=== PATIENT | female | born 1935 | race Two or more races ===

== ENCOUNTER 2021-11-14 10:33 | Emergency (ER) | payer OTHER ==
[~2021-11-14] VITALS: Ht 152.4 cm; Wt 61.2 kg
[2021-11-14 10:48] VITALS: BP 138/98
[2021-11-14] MEDS ORDERED: BENZ100C19 PO (12:53)
[2021-11-14] MEDS ORDERED: AZITTAB PO (12:53)
[2021-11-14] MEDS ORDERED: LEVO500T31 PO (12:53)
[2021-11-14] MEDS ORDERED: cefTRIAXone SOD 1,000 MG VL IM ONE (13:00)
== END 2021-11-14 13:35 | disposition home or self-care (01) ==
LOC: ER 10:33
DX: J18.9 Pneumonia, unspecified organism (principal); F41.9 Anxiety disorder, unspecified; E11.9 Type 2 diabetes mellitus without complications; I10 Essential (primary) hypertension; Z20.822 Contact with and (suspected) exposure to COVID-19
CPT/HCPCS: 36415; 71046; 82962; 87426; 96372; 99284; J0696

== ENCOUNTER 2025-04-10 14:42 | Inpatient (IN) | payer MEDICAID, OTHER ==
[~2025-04-10] VITALS: Ht 149.9 cm; Wt 55.2 kg
[~2025-04-10 14:42] MED LIST: AZITTAB PO; BENZ100C19 PO; LEVO500T31 PO
--- NOTE | 2025-04-10 15:01 | ED.PDOC ---
HPI Comments This is a 89 year old female brought in by daughter presenting to the ED with chief complaint of chest pain. Daughter reports that the patient has been complaining of chest pain with associated mouth pain and abdominal pain since this morning, being un-consolable since onset. Daughter relays that the patient has had multiple episodes of similar pain the past, being seen at a hospital in [place] 2 weeks ago, but is unsure of their results. Daughter states patient has a tankerman appointment tomorrow regarding the pain she has been experiencing. Daughter denies any syncope, fever, chills, SOB, N/V, dizziness, or any further symptoms. Time Seen by MD: 14:58 Primary Care Provider: VERONIQUE Sebastian Notes: Nurses Notes, Medications, Allergies Allergies: Coded Allergies: NO KNOWN ALLERGIES (Unverified , 11/14/21) Home Meds Active Scripts Benzonatate (Tessalon Perles) 100 Mg Cap, 100 MG PO TID, #30 CAP Prov:LV MIRANDA 11/14/21 Azithromycin (Zithromax Z-Alan) 250 Mg Tab, 250 MG PO DAILY for 6 Days, #6 TAB Prov:LV MIRANDA 11/14/21 Levofloxacin (Levaquin) 500 Mg Tab, 500 MG PO DAILY for 10 Days, #10 TAB Prov:LV MIRANDA 11/14/21 Information Source: Patient Mode of Arrival: Wheelchair Severity: Moderate Timing: Days Duration: Intermittent Prehospital treatment: None Location: Substernal Radiation: Abdomen, Jaw Quality: Sharp Onset: At Rest Cardiac Risk Factors: HTN, Diabetes PE Risk Factors: None History of: Similar pain in past Past Medical History PAST MEDICAL HISTORY: Anxiety, DM, HTN Surgical History: Hysterectomy, Pacemaker Surgical History (Other): Cataract surgery [employer] History: Denies all [employer] Hx Family History Family History: Reviewed,noncontributory to illness, Family hx of DM, Family hx of HTN Social History Smoker: Non-Smoker Alcohol: Denies ETOH Use Drugs: Denies Drug Use Lives In: Home Constitutional: denies: chills, diaphoresis, fatigue, fever, malaise, sweats, weakness, others EENTM: reports: mouth pain; denies: blurred vision, double vision, ear bleeding, ear discharge, ear drainage, ear pain, ear ringing, eye pain, eye redness, hearing loss, mouth swelling, nasal discharge, nose bleeding, nose congestion, nose pain, photophobia, tearing, throat pain, throat swelling, voice changes, others Respiratory: denies: cough, hemoptysis, orthopnea, SOB at rest, shortness of breath, SOB with excertion, stridor, wheezing, others Cardiovascular: reports: chest pain; denies: dizzy spells, diaphoresis, Dyspnea on exertion, edema, irregular heart beat, left arm pain, lightheadedness, palpitations, PND, syncope, others Gastrointestinal: reports: abdominal pain; denies: abdomen distended, blood streaked bowels, constipated, diarrhea, dysphagia, difficulty swallowing, hematemesis, melena, nausea, poor appetite, poor fluid intake, rectal bleeding, rectal pain, vomiting, others Genitourinary: denies: abnormal vagina bleeding, burning, dyspareunia, dysuria, flank pain, frequency, hematuria, incontinence, pain, , vagina discharge, urgency, others Neurological: denies: dizziness, fainting, headache, left sided numbness, left sided weakness, numbness, paresthesia, pre-existing deficit, right sided nu mbness, right sided weakness, seizure, speech problems, tingling, tremors, weakness, others Musculoskeletal: denies: back pain, gout, joint pain, joint swelling, muscle pain, muscle stiffness, neck pain, others Integumetry: denies: bruises, change in color, change in hair/nails, dryness, laceration, lesions, lumps, rash, wounds, others Allergic/Immunocompromised: denies: Difficulty Healing, Frequent Infections, Hives, Itching, others Hematologic/Lymphatic: denies: anemia, blood clots, easy bleeding, easy bruising, swollen glands, others Endocrine: denies: excessive hunger, excessive sweating, excessive thirst, excessive urination, flushing, intolerance to cold, intolerance to heat, unexplained weight gain, unexplained weight loss, others Psychiatric: denies: anxiety, bipolar disorder, depression, hopeless, panic disorder, schizophrenia, sleepless, suicidal, others All Other Systems: Reviewed and Negative Physical Exam General Appearance: Moderate Distress HEENT: Normal ENT Inspection, Pharynx Normal, TMs Normal Neck: Full Range of Motion, Non-Tender, Normal, Normal Inspection Respiratory: Chest Non-Tender, Lungs Clear, No Accessory Muscle Use, No Respiratory Distress, Normal Breath Sounds Cardiovascular: No Edema, No JVD, No Murmur, No Gallop, Normal Peripheral Pulses, Regular Rate/Rhythm Breast Exam: Deferred Gastrointestinal: No Organomegaly, Non Tender, No Pulsatile Mass, Normal Bowel Sounds, Soft Genitalia: Deferred Pelvic: Deferred Rectal: Deferred Extremities: No calf tenderness, Normal capillary refill, No pedal edema Musculoskeletal : Apperance: Normal Neurologic: Alert, covered buckle assembler II-XII nml as Tested, Motor Weakness, Normal Affect, Normal Mood, No Sensory Deficits Cerebellar Function: Normal Reflexes: Normal Skin: Dry, Normal Color, Warm Lymphatic: No Adenopathy EKG EKG : Pulse Rate (adult): 72 Riparius: Normal Cardiac Rhythm: Paced Block: None Hypertrophy: None ST: Normal Was a procedure done? Was a procedure done?: No CP Differential Dx Differential Diagnosis: Angina, VT, Pulmonary Embolus Differential Diagnosis: CHF Differential Diagnosis: Pericarditis X-Ray, Labs, Meds, VS Vital Signs Date Time Temp Pulse Resp B/P (MAP) Pulse Ox O2 Delivery O2 Flow Rate FiO2 04/10/25 18:29 74 24 132/88 04/10/25 18:27 74 24 132/88 (103) 96 04/10/25 15:12 72 04/10/25 14:53 72 04/10/25 14:45 98.4 71 20 144/101 (115) 98 98.4 161/60 (93) Lab Test 04/10/25 19:06 04/10/25 17:05 04/10/25 16:15 Range/Units Troponin I High Sensitivity Pending 49 *H 52 *H </=34 ng/L White Blood Count 10.0 4.4-10.8 10^3/uL Red Blood Count 3.32 L 4.0-5.20 10^6/uL Hemoglobin 11.1 L 12.2-16.2 g/dL Hematocrit 31.8 L 36.0-46.0 % Mean Corpuscular Volume 95.7 80.0-100.0 fL Mean Corpuscular Hemoglobin 33.3 H 28.0-32.0 pg Mean Corpuscular Hemoglobin Concent 34.8 32.0-36.0 g/dL Red Cell Distribution Width 13.8 11.8-14.3 % Platelet Count 386 140-450 10^3/uL Mean Platelet Volume 6.9 6.9-10.8 fL Neutrophils (%) (Auto) 82.5 H 37.0-80.0 % Lymphocytes (%) (Auto) 11.3 10.0-50.0 % Monocytes (%) (Auto) 5.8 0.0-12.0 % Eosinophils (%) (Auto) 0.0 0.0-7.0 % Basophils (%) (Auto) 0.4 0.0-2.0 % Neutrophils # (Auto) 8.2 1.6-8.6 10 ^3/uL Lymphocytes # (Auto) 1.1 0.4-5.4 10 ^3/uL Monocytes # (Auto) 0.6 0-1.3 10 ^3/uL Eosinophils # (Auto) 0 0-0.8 10 ^3/uL Basophils # (Auto) 0 0-0.2 10 ^3/uL Nucleated Red Blood Cells 0.0 % Sodium Level 122 L 136-145 mmol/L Potassium Level 5.0 3.5-5.1 mmol/L Chloride Level 90 L 98-107 mmol/L Carbon Dioxide Level 21 20-31 mmol/L Anion Gap 11 5-15 Blood Urea Nitrogen 14 9-23 mg/dL Creatinine 0.81 0.550-1.02 mg/dL Glomerular Filtration Rate Calc 70 >90 mL/min BUN/Creatinine Ratio 17.3 10.0-20.0 Serum Glucose 183 H 74-106 mg/dL Calcium Level 10.1 8.7-10.4 mg/dL Current Medications Medications (Trade) Dose Ordered Sig/Britany Route Start Time Stop Time Status Last Admin Ondansetron HCl (Zofran) 4 mg ONCE ONCE IV 04/10/25 15:00 04/10/25 15:01 DC 04/10/25 18:29 Morphine Sulfate 2 mg ONCE ONCE IV 04/10/25 15:00 04/10/25 15:01 DC 04/10/25 18:29 IV Hep-Lock was established The patient was given Zofran 4 mg IV push The patient was given morphine 2 mg IV push The patient's CBC is within normal limits The chemistry panel is within normal limits The troponin level came back at 52 and the 2nd one came back at 49 we are drove bolus somewhat elevated The patient is being admitted to the hospitalist A chest x-ray shows: No sign of any cardiomegaly The patient is being admitted to the hospitalist Images Reviewed?: Images reviewed and evaluated by me Time of 1ST Reevaluation: 19:42 Reevaluation 1ST: Unchanged Patient Education/Counseling: Diagnosis, Treatment, Prognosis Family Education/Counseling: Diagnosis, Treatment, Prognosis Additional Information Reviewed patient's previous visit(s): 11/14/21 for pneumonia The following tests were ordered, and results were reviewed by me: Chest XR, CBC, BMP, UA, EKG Additional information was gathered from interviewing the following independent historian: Daughter I reviewed and agreed with the following test results read by other provider: Chest XR I discussed treatments and results with medical personnel and: PATIENT and daughter Comprehensive systems review obtained and negative except for what is stated in the HPI. SEPSIS Sepsis Screen Physician Orders Chest Portable (04/10/25 14:51) Urinalysis (04/10/25 14:51) Heplock Iv (04/10/25 14:51) Biscuit Factory Worker (04/10/25 14:51) Blood Pressure (04/10/25 14:51) Pulse Oximetry (04/10/25 14:51) Electrocardigram (04/10/25 14:51) Troponin-I Hs (04/10/25 17:51) Electrocardigram (04/10/25 15:51) Electrocardigram (04/10/25 17:51) Vital Signs Date Time Temp Pulse Resp B/P (MAP) Pulse Ox O2 Delivery O2 Flow Rate FiO2 04/10/25 18:29 74 24 132/88 04/10/25 18:27 74 24 132/88 (103) 96 04/10/25 15:12 72 04/10/25 14:53 72 04/10/25 14:45 98.4 71 20 144/101 (115) 98 98.4 161/60 (93) Laboratory Tests Test 04/10/25 16:15 White Blood Count 10.0 10^3/uL (4.4-10.8) Medications Medications Dose Ordered Sig/Britany Route Start Time Stop Time Status Last Admin Dose Admin Morphine Sulfate 2 mg ONCE ONCE IV 04/10/25 15:00 04/10/25 15:01 DC 04/10/25 18:29 Ondansetron HCl 4 mg ONCE ONCE IV 04/10/25 15:00 04/10/25 15:01 DC 04/10/25 18:29 Departure 1 Departure Time of Disposition: 19:44 Impression: Primary Impression: Acute chest pain Additional Impression: Acute coronary syndrome Disposition: 09 ADMITTED INPATIENT Admit to: Tele Condition: Fair Critical Care Note Critical Care Time?: Yes (35 min-critical care time only) Stability Stability form required: Yes Unstable for transfer: Telemetry monitoring (Telemetry monitoring required), ED Physician Assesment (Clinical assesment) Heart Score Heart Score: Heart Score Response (Comments) Value History Highly Suspicious 2 EKG Normal 0 Age >65 2 Risk Factors >3 or Hx ASHD 2 Troponin 1-2 x's Normal limit 1 Total 7 I personally scribed for ABRAM AGUIAR MD ([email or web address]) on 04/10/25 at 15:01. Electronically submitted by eSth Jacobson ([email or web address]). I personally scribed for ABRAM AGUIAR MD ([email or web address]) on 04/10/25 at 15:12. Electronically submitted by Seth Jacobson ([email or web address]). ABRAM AGUIAR MD Apr 10, 2025 15:01
--- NOTE | 2025-04-10 15:33 | DVH ---
EXAM: XY CHEST PORTABLE Indication: pain Technique: Single frontal view of the chest was obtained Comparison: None FINDINGS: Lines and Tubes: Cardiac pacemaker projects over left chest wall. Lungs: No focal consolidation. Pleura: No effusion. No pneumothorax. Cardiomediastinal contours: Unremarkable Bones: No acute osseous abnormality. IMPRESSION: No acute cardiopulmonary disease.
[2025-04-10 16:27] LABS: Basophils # (auto) 0 10 ^3/uL (0-0.2); Basophils % (auto) 0.4 % (0.0-2.0); Eosinophils # (auto) 0 10 ^3/uL (0-0.8); Hematocrit 31.8 % (36.0-46.0); Hemoglobin 11.1 g/dL (12.2-16.2); Lymphocytes # (auto) 1.1 10 ^3/uL (0.4-5.4); Lymphocytes % (auto) 11.3 % (10.0-50.0); Mean Corpuscular Hemoglobin 33.3 pg (28.0-32.0); Mean Corpuscular Hgb Conc. 34.8 g/dL (32.0-36.0); Mean Corpuscular Volume 95.7 fL (80.0-100.0); Monocytes # (auto) 0.6 10 ^3/uL (0-1.3); Monocytes % (auto) 5.8 % (0.0-12.0); Neutrophils # (auto) 8.2 10 ^3/uL (1.6-8.6); Neutrophils % (auto) 82.5 % (37.0-80.0); Platelet Count (auto) 386 10^3/uL (140-450); Red Blood Cells 3.32 10^6/uL (4.0-5.20); Red Cell Distribution Width 13.8 % (11.8-14.3)
[2025-04-10 16:37] LABS: Anion Gap 11 (5-15); Calcium 10.1 mg/dL (8.7-10.4); Carbon Dioxide 21 mmol/L (20-31)
[2025-04-10 16:42] LABS: BUN/Creatinine Ratio 17.3 (10.0-20.0); Blood Urea Nitrogen 14 mg/dL (9-23)
[2025-04-10 16:44] LABS: Chloride 90 mmol/L (98-107); Glucose 183 mg/dL (74-106); Sodium 122 mmol/L (136-145)
[2025-04-10] MEDS: ONDANSETRON HCL 4 MG/2 ML VIAL IV ONE (18:29)
[2025-04-10] MEDS: MORPHINE SULFATE INJ 2 MG/ml SYRG IV ONE (18:29)
[2025-04-10] MEDS ORDERED: NITROGLYCERIN 0.4 MG SL TAB SL PRN (20:00)
[2025-04-10] MEDS ORDERED: MORPHINE SULFATE INJ 2 MG/ml SYRG IV PRN (20:00)
[2025-04-10] MEDS ORDERED: DEXTROSE (50%) 50ML SYRG IV PRN (20:00)
[2025-04-10] MEDS ORDERED: ONDANSETRON HCL 4 MG/2 ML VIAL IV PRN (20:00)
[2025-04-10 20:47] LABS: Urine Bacteria None Seen /hpf (None Seen)
[2025-04-10 20:58] LABS: Urine Blood TRACE /uL (Negative); Urine Clarity Clear (Clear); Urine Color Colorless (Yellow); Urine Protein, UAD Negative (Negative); Urine Specific Gravity 1.003 (1.001-1.035); Urine Squamous Epithelial Cell FEW /hpf (<5); Urine Urobilinogen Normal (Negative); Urine WBC < 1 /HPF (0-5); Urine pH 5.5 (5.0-9.0)
--- NOTE | 2025-04-10 22:08 | DVHHP2 ---
History of Present Illness Reason for Visit: Palpitations History of Present Illness 89-year-old female presents for evaluation of palpitations. Patient reports a three day history of intermittent palpitations. She states that today she developed mild left-sided chest pain. She states having he pacemaker which she was told had to be replaced on September of last year she has not been able to follow up with her hog ringer. Denies shortness or breath or dizziness. No other acute complaints reported. Past Medical History Diabetes mellitus Past Surgical History Pacemaker and cataract surgery Family History Noncontributory Smoke: No ALCOHOL: none Drugs: None Lives: with Family Review of Systems Review of Systems Review of systems are currently negative otherwise addressed in HPI. Allergies: Coded Allergies: NO KNOWN ALLERGIES (Unverified , 11/14/21) Medications Current Medications Medications Dose Ordered Sig/Britany Route Start Time Stop Time Status Last Admin Dose Admin Aspirin 162 mg DAILY PO 04/11/25 10:00 Atorvastatin Calcium 10 mg HS PO 04/10/25 22:00 Diagnostic Test (Pha) 1 strip ACHS 04/10/25 22:00 Insulin Human Regular ACHS SC 04/10/25 22:00 Dextrose 50 ml UD PRN IV 04/10/25 20:00 Ondansetron HCl 4 mg Q4HP PRN IV 04/10/25 20:00 Enoxaparin Sodium 40 mg DAILY SC 04/11/25 10:00 Acetaminophen 650 mg Q6HP PRN PO 04/10/25 20:00 Nitroglycerin 0.4 mg Q5MINP PRN SL 04/10/25 20:00 Morphine Sulfate 2 mg Q30M PRN IV 04/10/25 20:00 Exam Vital Signs Vital Signs Date Time Temp Pulse Resp B/P (MAP) Pulse Ox O2 Delivery O2 Flow Rate FiO2 04/10/25 21:43 98.5 70 16 155/60 (91) 97 98.5 Exam Gen: 89-year-old female in no apparent distress. Skin: Warm, dry, normal color and texture, no rash. HEENT: Normocephalic atraumatic, mucous membranes moist and pink. Neck: Cervical and supraclavicular nodes normal without enlargement, trachea is midline, thyroid gland is normal without masses. Pulmonary: Clear to auscultation and percussion bilaterally. Cardiac: Regular rate and rhythm. No murmur Abdomen: Soft, nontender, nondistended, bowel sounds present all 4 quadrants, no guarding, no rigidity, no organomegaly. Extremities: No cyanosis, clubbing, no edema Neuro: Cranial nerves II through XII grossly intact, normal affect and speech, no focal motor deficits. Labs/Xrays ORDERING PHYSICIAN: ABRAM AGUIAR MD PROCEDURE(s): CXRP - CHEST PORTABLE REASON: pain ORDER NUMBER(s): [id number], ACCESSION NUMBER(s): [id number] EXAM: XY CHEST PORTABLE Indication: pain Technique: Single frontal view of the chest was obtained Comparison: None FINDINGS: Lines and Tubes: Cardiac pacemaker projects over left chest wall. Lungs: No focal consolidation. Pleura: No effusion. No pneumothorax. Cardiomediastinal contours: Unremarkable Bones: No acute osseous abnormality. IMPRESSION: No acute cardiopulmonary disease. Labs Test 04/10/25 20:46 04/10/25 19:06 04/10/25 16:15 Range/Units Urine Color Colorless Yellow Urine Clarity Clear Clear Urine pH 5.5 5.0-9.0 Urine Specific [place] 1.003 1.001-1.035 Urine Protein Negative Negative Urine Ketones Negative Negative Urine Blood Trace H Negative /uL Urine Nitrite Negative Negative Urine Bilirubin Negative Negative Urine Urobilinogen Normal Negative mg/dL Urine Leukocyte Esterase Negative Negative /uL Urine RBC None seen 0 - 4 /hpf Urine Microscopic WBC < 1 0-5 /HPF Urine Squamous Epithelial Cells Few <5 /hpf Urine Bacteria None seen None Seen /hpf Urine Glucose Normal Normal mg/dL Troponin I High Sensitivity 54 *H </=34 ng/L White Blood Count 10.0 4.4-10.8 10^3/uL Red Blood Count 3.32 L 4.0-5.20 10^6/uL Hemoglobin 11.1 L 12.2-16.2 g/dL Hematocrit 31.8 L 36.0-46.0 % Mean Corpuscular Volume 95.7 80.0-100.0 fL Mean Corpuscular Hemoglobin 33.3 H 28.0-32.0 pg Mean Corpuscular Hemoglobin Concent 34.8 32.0-36.0 g/dL Red Cell Distribution Width 13.8 11.8-14.3 % Platelet Count 386 140-450 10^3/uL Mean Platelet Volume 6.9 6.9-10.8 fL Neutrophils (%) (Auto) 82.5 H 37.0-80.0 % Lymphocytes (%) (Auto) 11.3 10.0-50.0 % Monocytes (%) (Auto) 5.8 0.0-12.0 % Eosinophils (%) (Auto) 0.0 0.0-7.0 % Basophils (%) (Auto) 0.4 0.0-2.0 % Neutrophils # (Auto) 8.2 1.6-8.6 10 ^3/uL Lymphocytes # (Auto) 1.1 0.4-5.4 10 ^3/uL Monocytes # (Auto) 0.6 0-1.3 10 ^3/uL Eosinophils # (Auto) 0 0-0.8 10 ^3/uL Basophils # (Auto) 0 0-0.2 10 ^3/uL Nucleated Red Blood Cells 0.0 % Sodium Level 122 L 136-145 mmol/L Potassium Level 5.0 3.5-5.1 mmol/L Chloride Level 90 L 98-107 mmol/L Carbon Dioxide Level 21 20-31 mmol/L Anion Gap 11 5-15 Blood Urea Nitrogen 14 9-23 mg/dL Creatinine 0.81 0.550-1.02 mg/dL Glomerular Filtration Rate Calc 70 >90 mL/min BUN/Creatinine Ratio 17.3 10.0-20.0 Serum Glucose 183 H 74-106 mg/dL Calcium Level 10.1 8.7-10.4 mg/dL Assessment/Plan Assessment/Plan Assessment Chest pain Palpitations Diabetes mellitus Status post pacemaker Plan Admit the patient to telemetry to the hospitalist Cardiology consultation Continue treatment per orders. Plan discussed with: Patient My Orders Orders - DELFINA HIGH Procedure Category Date Status Time * Cardiology Consult CONS 04/10/25 Transmitted 19:48 Aspirin Tablet PHA 04/11/25 In Process 10:00 Atorvastatin (Lipitor) PHA 04/10/25 In Process 22:00 Basic Metabolic Panel LAB 04/11/25 Verified 04:00 Glucose Blood PHA 04/10/25 In Process (Accu-Chek Comfort 22:00 Insulin R (Human) PHA 04/10/25 In Process (Insulin R) 22:00 Dextrose 50% Syringe PHA 04/10/25 In Process 20:00 Enoxaparin Sodium PHA 04/11/25 In Process (Lovenox) 10:00 Cardiac DIET 04/11/25 Transmitted Diet-2gna,Lofat,Lochol Breakfast Echo 2d Mode Cardiac US 04/10/25 Logged DOP 19:48 Condition: Fair [place] 04/10/25 In Process 19:48 Acetaminophen Tablet PHA 04/10/25 In Process (Tylenol Tablet) 20:00 Bedrest With Bathroom [place] 04/10/25 In Process Privileg 19:48 Nitroglycerin PHA 04/10/25 In Process Sublingual (Ntrostat 20:00 Morphine Sulfate PHA 04/10/25 In Process Injection 20:00 Stat Ekg For Chest [facility] 04/10/25 In Process Pain 19:48 Notify Md Of Changes [facility] 04/10/25 In Process From Base 19:48 Weir Fisher For [facility] 04/10/25 In Process 24 Hours 19:48 Emergency Dysrhythmia [facility] 04/10/25 In Process Protocol 19:48 Rhythm Strips Once [facility] 04/10/25 In Process Every Shift 19:48 Oxygen By Nasal RT 04/10/25 Transmitted Cannula 19:48 Admit ADMIT 04/10/25 Verified 19:48 Ondansetron Hcl PHA 04/10/25 In Process (Zofran) 20:00 Date of Service: Apr 10, 2025 Billing Provider: DELFINA HIGH Common Visit Codes: [id number] INP/OBS CARE (HIGH) DELFINA HIGH Apr 10, 2025 22:08
[2025-04-10 22:44] LABS: LDL Cholesterol 50 mg/dL (< 100); Triglycerides 78 mg/dL (< 150)
[2025-04-10 22:46] LABS: Cholesterol 137 mg/dL (< 200)
[2025-04-10 22:54] LABS: HDL Cholesterol 69 mg/dL (40-59)
[2025-04-10] MEDS: ACCU-CHEK COMFORT CURVE STRIP VI SCH (23:02)
[2025-04-10] MEDS: InsuLIN REG 1unit/0.01ml Soln (100units/ml) SC SCH (23:07)
[2025-04-10] MEDS: ATORVASTATIN 20 MG TAB PO SCH (23:13)
[2025-04-10] MEDS: diphenhdrAMINE HCL 50 MG/1 ML VL IV ONE (23:13)
[2025-04-10 23:26] VITALS: BP 145/70; PULSE 67; RESP 16; TEMP 98.5; O2SAT 100
[2025-04-10 23:32] VITALS: PULSE 70
[2025-04-11] VITALS (9 sets, daily range): BP systolic 101–145; BP diastolic 51–70; PULSE 67–70; RESP 16–18; TEMP 97.7–99.2; O2SAT 95–100
[2025-04-11] MEDS ORDERED: METF-370 PO (00:22)
[2025-04-11 06:48] LABS: Potassium 4.1 mmol/L (3.5-5.1)
[2025-04-11 06:49] LABS: Anion Gap 10 (5-15); Carbon Dioxide 23 mmol/L (20-31)
[2025-04-11 06:51] LABS: Chloride 97 mmol/L (98-107); Sodium 130 mmol/L (136-145)
[2025-04-11 06:54] LABS: BUN/Creatinine Ratio 20.7 (10.0-20.0); Blood Urea Nitrogen 19 mg/dL (9-23); Glucose 111 mg/dL (74-106)
[2025-04-11] MEDS: ASPirin 81 mg TAB PO SCH (09:55)
[2025-04-11] MEDS: ENOXAPARIN SOD 40 MG/0.4 ML SYRINGE SC SCH (09:56)
--- NOTE | 2025-04-11 10:43 | ECG ---
[facility] Test Date: 2025-04-10 Test Time: 14:53:41 Pat Name: ADITI QUINTEROS Department: ER Room: 0249T B Gender: F Coater Helper: RANCHO : 1935 Requested By: ABRAM AGUIAR Order Number: [id number] Reading MD: Randy Bauer Measurements Intervals [place] Rate: 72 P: -22 IN: 184 QRS: -55 QRSD: 165 T: -26 QT: 445 QTc: 488 Interpretive Statements Atrial-sensed ventricular-paced rhythm No further analysis attempted due to paced rhythm Baseline wander in lead(s) V1,V2 Electronically Signed On 04-13-2025 19:59:49 PDT by Randy Bauer Please click the below link to view image of tracing.
--- NOTE | 2025-04-11 10:48 | DVHCONRES ---
Date Seen: Apr 11, 2025 Resident Creating Document: ANDRADE MCGOWAN RESIDENT Reason for Consultation Chest pain History of Present Illness Patient is an 89-year-old female with past medical history of diabetes, dyslipidemia, s/p pacemaker in 2008 who comes in due to palpitations and chest pain. According to the patient and daughter at bedside, she has been experiencing a throbbing pressure-like chest pain for the past 1 year, she rates the pain as 4/10, onset at rest and accompanied with palpitations. Currently denies any active ongoing chest pain. Patient also notes she experiences mouth pain which leads to palpitations and spreads to an abdominal pain. Patient is a poor historian. At baseline patient uses a walker to ambulate. On review of systems patient is complaining of fatigue, palpitations, nausea, 2 episodes of vomiting yesterday and diarrhea. Of note, per patient's daughter at bedside she was told in September 2024 that pacemaker needs battery replacement, daughter notes she has an appointment with [employer] today at 1:00 p.m. for battery replacement. Serial troponins were 52, 49, 54, 41. Past Medical History diabetes, dyslipidemia, s/p pacemaker in 2008 Past Surgical History Hysterectomy, s/p pacemaker placement in 2008 Family History: Diabetes mellitus G8 MOTHER G8 FATHER Social History Smoking: Denies Alcohol: Denies Drugs: Denies Allergies: Coded Allergies: NO KNOWN ALLERGIES (Unverified , 11/14/21) Home Meds Reported Medications Metformin Hydrochloride (Metformin Hcl) 500 Mg Tab, 500 MG PO BID for DIABETES for 30 Days, MG 04/11/25 Current Medications Current Medications Medications (Trade) Dose Ordered Sig/Britany Route PRN Reason Start Time Stop Time Status Last Admin Aspirin 162 mg DAILY PO 04/11/25 10:00 04/11/25 09:55 Atorvastatin Calcium (Lipitor) 10 mg HS PO 04/10/25 22:00 04/10/25 23:13 Diagnostic Test (Pha) (Accu-Chek Comfort Curve T) 1 strip ACHS 04/10/25 22:00 04/11/25 06:35 Insulin Human Regular (InsuLIN R) ACHS SC 04/10/25 22:00 04/10/25 23:07 Dextrose 50 ml UD PRN IV Blood Sugar LESS THAN 60 04/10/25 20:00 Ondansetron HCl (Zofran) 4 mg Q4HP PRN IV NAUSEA / VOMITING 04/10/25 20:00 Enoxaparin Sodium (Lovenox) 40 mg DAILY SC 04/11/25 10:00 04/11/25 09:56 Acetaminophen (Tylenol Tablet) 650 mg Q6HP PRN PO PAIN SCALE 1-3 OR TEMP>100.4 04/10/25 20:00 Nitroglycerin (Ntrostat Sublingual) 0.4 mg Q5MINP PRN SL FOR CHEST PAIN 04/10/25 20:00 Morphine Sulfate 2 mg Q30M PRN IV FOR CHEST PAIN 04/10/25 20:00 Review of Systems Patient seen and examined at bedside. General: Fatigue Eyes: No Pain, No Vision change, No Conjunctivae inflammation, No Eyelid inflammation, No Other, No Redness ENT: No Ear pain, No Ear discharge, No Nose pain, No Nose discharge, No Nose congestion, No Mouth pain, No Mouth swelling, No Throat pain, No Throat swelling, No Other Cardiovascular: No Chest Pain, Palpitations, No Orthopnea, No Paroxysmal No Dyspnea, No Edema, No Lt Headedness, No Other Respiratory: No Cough, No Dry, No Shortness of breath, No SOB with exertion, No Wheezing, No Hemoptysis, No Pleuritic Pain, No Sputum, No Other Gastrointestinal: Nausea, Vomiting, Abdominal Pain, Diarrhea, No Constipation, No Melena, No Hematochezia, No Other Genitourinary: No Dysuria, No Frequency, No Incontinence, No Hematuria, No Retention, No Other Musculoskeletal: No other, No neck pain, No shoulder pain, No arm pain, No back pain, No hand pain, No leg pain, No foot pain Skin: No Rash, No Lesions, No Jaundice, No Bruising, No Other Vital Signs Vital Signs Date Time Temp Pulse Resp B/P (MAP) Pulse Ox O2 Delivery O2 Flow Rate FiO2 04/11/25 09:00 98.0 70 17 133/67 (89) 95 98.0 04/11/25 08:57 Room Air* 0 21 Physical Exam General Appearance: Cooperative. Well developed. Well nourished. NAD. Dry mucous membrane Head Exam: Normal inspection Neck Exam: Normal inspection. Non-tender. Pulmonary/Respiratory: Chest non-tender. Decreased bilateral breath sounds, no crackles, no wheezing. Cardiovascular/Chest: Regular rate and rhythm. No murmurs. No JVD. Peripheral Pulses: 2+ Radial (R). 2+ Radial (L). 2+ Pedal (R). 2+ Pedal (L) Abdominal Exam: Normal bowel sounds. Soft. normal abdomen, no visible veins, Nontender. No hepatospenomegaly. No masses Lower extremities: Negative lower extremity edema Neuro/Mental Status: A&O x2-3. Coherent. Skin Exam: Normal inspection. Normal color. Warm. Dry Labs/Diagnostic Data Labs Test 04/11/25 06:10 04/11/25 06:07 04/10/25 20:46 04/10/25 19:06 Range/Units POC Glucose 130 H 70-106 mg/dl Sodium Level 130 #L 136-145 mmol/L Potassium Level 4.1 3.5-5.1 mmol/L Chloride Level 97 L 98-107 mmol/L Carbon Dioxide Level 23 20-31 mmol/L Anion Gap 10 5-15 Blood Urea Nitrogen 19 9-23 mg/dL Creatinine 0.92 0.550-1.02 mg/dL Glomerular Filtration Rate Calc 60 >90 mL/min BUN/Creatinine Ratio 20.7 H 10.0-20.0 Serum Glucose 111 H 74-106 mg/dL Hemoglobin A1c 6.4 H <5.7 % A1C Calcium Level 10.0 8.7-10.4 mg/dL Troponin I High Sensitivity 41 *H </=34 ng/L Urine Color Colorless Yellow Urine Clarity Clear Clear Urine pH 5.5 5.0-9.0 Urine Specific [place] 1.003 1.001-1.035 Urine Protein Negative Negative Urine Ketones Negative Negative Urine Blood Trace H Negative /uL Urine Nitrite Negative Negative Urine Bilirubin Negative Negative Urine Urobilinogen Normal Negative mg/dL Urine Leukocyte Esterase Negative Negative /uL Urine RBC None seen 0 - 4 /hpf Urine Microscopic WBC < 1 0-5 /HPF Urine Squamous Epithelial Cells Few <5 /hpf Urine Bacteria None seen None Seen /hpf Urine Glucose Normal Normal mg/dL Triglycerides Level 78 < 150 mg/dL Cholesterol Level 137 < 200 mg/dL LDL Cholesterol 50 < 100 mg/dL HDL Cholesterol 69 H 40-59 mg/dL Test 04/10/25 17:05 04/10/25 16:15 Range/Units Thyroid Stimulating Hormone (TSH) 2.36 0.55-4.78 uIU/mL White Blood Count 10.0 4.4-10.8 10^3/uL Red Blood Count 3.32 L 4.0-5.20 10^6/uL Hemoglobin 11.1 L 12.2-16.2 g/dL Hematocrit 31.8 L 36.0-46.0 % Mean Corpuscular Volume 95.7 80.0-100.0 fL Mean Corpuscular Hemoglobin 33.3 H 28.0-32.0 pg Mean Corpuscular Hemoglobin Concent 34.8 32.0-36.0 g/dL Red Cell Distribution Width 13.8 11.8-14.3 % Platelet Count 386 140-450 10^3/uL Mean Platelet Volume 6.9 6.9-10.8 fL Neutrophils (%) (Auto) 82.5 H 37.0-80.0 % Lymphocytes (%) (Auto) 11.3 10.0-50.0 % Monocytes (%) (Auto) 5.8 0.0-12.0 % Eosinophils (%) (Auto) 0.0 0.0-7.0 % Basophils (%) (Auto) 0.4 0.0-2.0 % Neutrophils # (Auto) 8.2 1.6-8.6 10 ^3/uL Lymphocytes # (Auto) 1.1 0.4-5.4 10 ^3/uL Monocytes # (Auto) 0.6 0-1.3 10 ^3/uL Eosinophils # (Auto) 0 0-0.8 10 ^3/uL Basophils # (Auto) 0 0-0.2 10 ^3/uL Nucleated Red Blood Cells 0.0 % Assessment Chest pain, rule out ACS S/p pacemaker, pacer dependent Palpitations Type 2 diabetes, Hb A1c 6.4 Plan: - serial troponins 52, 49, 54, 41 - heart score 4 - pacemaker interrogation with [facility] completed, per personnel pacemaker functioning appropriately with adequate battery for the next 8 months - inpatient stress test Lexiscan - outpatient follow up with cardiology recommended for pacemaker management - rest of the management as per course of hospitalization Thank you so much for the opportunity to consult on your patient. Cardiology team will follow the patient. In case of any questions or concerns please feel free to reach out. Plan discussed with Dr. Vela Plan discussed with: Patient, Daughter, Other (RN) Visit Coding Cardiology RES Date of Service: Apr 11, 2025 Billing Provider: ABAD VELA Sr., MD Cardiology Common Codes: [id number] INP/OBS CARE (High) ANDRADE MCGOWAN RESIDENT Apr 11, 2025 10:48
--- NOTE | 2025-04-11 17:42 | DVHPN2 ---
Subjective Seen and examined at bedside, cardio consult done. Occasional chest pain. Changes from previous H/P or p: No Changes Objective Vitals Vital Signs Date Time Temp Pulse Resp B/P (MAP) Pulse Ox O2 Delivery O2 Flow Rate FiO2 04/11/25 17:00 99.2 70 17 111/58 (75) 97 99.2 04/11/25 08:57 Room Air* 0 21 Intake/Output Intake and Output 04/11/25 06:59 Intake Total 0 ml Balance 0 ml Intake Oral 0 ml # Voids 1 General Appearance: Alert, Oriented X3, Cooperative, No acute distress Lungs: Clear to auscultation Cardiovascular: Regular rate, Normal S1, Normal S2 Abdomen: Normal bowel sounds, Soft Psych/Mental Status: Mental status NL Medications Current Medications Medications Dose Ordered Sig/Britany Route Start Time Stop Time Status Last Admin Dose Admin Aspirin 162 mg DAILY PO 04/11/25 10:00 04/11/25 09:55 162 MG Atorvastatin Calcium 10 mg HS PO 04/10/25 22:00 04/10/25 23:13 10 MG Diagnostic Test (Pha) 1 strip ACHS 04/10/25 22:00 04/11/25 11:30 1 STRIP Insulin Human Regular ACHS SC 04/10/25 22:00 04/10/25 23:07 3 UNITS Dextrose 50 ml UD PRN IV 04/10/25 20:00 Ondansetron HCl 4 mg Q4HP PRN IV 04/10/25 20:00 Enoxaparin Sodium 40 mg DAILY SC 04/11/25 10:00 04/11/25 09:56 40 MG Acetaminophen 650 mg Q6HP PRN PO 04/10/25 20:00 Nitroglycerin 0.4 mg Q5MINP PRN SL 04/10/25 20:00 Morphine Sulfate 2 mg Q30M PRN IV 04/10/25 20:00 Laboratory Results Laboratory Tests 04/10/25 16:15 04/11/25 06:07 Chemistry Test 04/11/25 06:07 Calcium Level 10.0 mg/dL (8.7-10.4) Lipid panel Test 04/10/25 19:06 Cholesterol Level 137 mg/dL (< 200) HDL Cholesterol 69 mg/dL (40-59) H Triglycerides Level 78 mg/dL (< 150) HgA1c, TSH Test 04/11/25 06:07 Hemoglobin A1c 6.4 % A1C (<5.7) H Urinalysis Test 04/10/25 20:46 Urine Color Colorless (Yellow) Urine Clarity Clear (Clear) Urine pH 5.5 (5.0-9.0) Urine Specific [place] 1.003 (1.001-1.035) Urine Protein Negative (Negative) Urine Ketones Negative (Negative) Urine Blood Trace /uL (Negative) H Urine Nitrite Negative (Negative) Urine Bilirubin Negative (Negative) Urine Urobilinogen Normal mg/dL (Negative) Urine Leukocyte Esterase Negative /uL (Negative) Urine RBC None seen /hpf (0 - 4) Urine Microscopic WBC < 1 /HPF (0-5) Urine Squamous Epithelial Cells Few /hpf (<5) Urine Bacteria None seen /hpf (None Seen) Urine Glucose Normal mg/dL (Normal) Microbiology Microbiology Date/Time Source Procedure Growth Status 04/11/25 05:25 Nose MRSA Screen - Final Complete Assessment/Plan Assessment/Plan Chest pain, rule out ACS S/p pacemaker, pacer dependent Palpitations Type 2 diabetes, Hb A1c 6.4 Plan: Cardio Cx Pacemaker interrogation Plan discussed with: Patient My Orders Orders - GRANT KING MD Procedure Category Date Status Time Osmolality Urine LAB 04/11/25 Logged 11:46 Date of Service: Apr 11, 2025 Billing Provider: GRANT KING MD Common Visit Codes: [id number] INP/OBS CARE(HIGH) GRANT KING MD Apr 11, 2025 17:42
[2025-04-12] VITALS (9 sets, daily range): BP systolic 109–132; BP diastolic 50–68; PULSE 69–71; RESP 16–20; TEMP 97.4–98.5; O2SAT 95–98
[2025-04-12] MEDS: REGADENOSON 0.4 MG/5 ML SYRG IV ONE ×2 (09:28)
--- NOTE | 2025-04-12 11:52 | DVHPN2 ---
Subjective Seen and examined at bedside, stress test today. Changes from previous H/P or p: No Changes Objective Vitals Vital Signs Date Time Temp Pulse Resp B/P (MAP) Pulse Ox O2 Delivery O2 Flow Rate FiO2 04/12/25 09:00 97.4 70 17 126/68 (87) 96 97.4 04/12/25 07:59 Room Air* 0 21 Intake/Output Intake and Output 04/12/25 07:00 Intake Total 740 ml Balance 740 ml Intake Oral 740 ml # Voids 3 General Appearance: Alert, Oriented X3, Cooperative, No acute distress Lungs: Clear to auscultation Cardiovascular: Regular rate, Normal S1, Normal S2 Abdomen: Normal bowel sounds, Soft Psych/Mental Status: Mental status NL Medications Current Medications Medications Dose Ordered Sig/Britany Route Start Time Stop Time Status Last Admin Dose Admin Aspirin 162 mg DAILY PO 04/11/25 10:00 04/12/25 10:30 162 MG Atorvastatin Calcium 10 mg HS PO 04/10/25 22:00 04/11/25 21:45 10 MG Diagnostic Test (Pha) 1 strip ACHS 04/10/25 22:00 04/12/25 11:37 1 STRIP Insulin Human Regular ACHS SC 04/10/25 22:00 04/10/25 23:07 3 UNITS Dextrose 50 ml UD PRN IV 04/10/25 20:00 Ondansetron HCl 4 mg Q4HP PRN IV 04/10/25 20:00 Enoxaparin Sodium 40 mg DAILY SC 04/11/25 10:00 04/12/25 10:30 40 MG Acetaminophen 650 mg Q6HP PRN PO 04/10/25 20:00 Nitroglycerin 0.4 mg Q5MINP PRN SL 04/10/25 20:00 Morphine Sulfate 2 mg Q30M PRN IV 04/10/25 20:00 Laboratory Results Laboratory Tests 04/10/25 16:15 04/11/25 06:07 Urinalysis Test 04/10/25 20:46 Urine Color Colorless (Yellow) Urine Clarity Clear (Clear) Urine pH 5.5 (5.0-9.0) Urine Specific [place] 1.003 (1.001-1.035) Urine Protein Negative (Negative) Urine Ketones Negative (Negative) Urine Blood Trace /uL (Negative) H Urine Nitrite Negative (Negative) Urine Bilirubin Negative (Negative) Urine Urobilinogen Normal mg/dL (Negative) Urine Leukocyte Esterase Negative /uL (Negative) Urine RBC None seen /hpf (0 - 4) Urine Microscopic WBC < 1 /HPF (0-5) Urine Squamous Epithelial Cells Few /hpf (<5) Urine Bacteria None seen /hpf (None Seen) Urine Glucose Normal mg/dL (Normal) Microbiology Microbiology Date/Time Source Procedure Growth Status 04/11/25 05:25 Nose MRSA Screen - Final Complete Assessment/Plan Assessment/Plan Chest pain, rule out ACS S/p pacemaker, pacer dependent Palpitations Type 2 diabetes, Hb A1c 6.4 Plan: Cardio Cx for stress test today Pacemaker interrogation Plan discussed with: Patient, Daughter My Orders Orders - GRANT KING MD Procedure Category Date Status Time Basic Metabolic Panel LAB 04/13/25 Verified 04:00 Magnesium LAB 04/13/25 Verified 04:00 Date of Service: Apr 12, 2025 Billing Provider: GRANT KING MD Common Visit Codes: [id number] INP/OBS CARE(HIGH) GRANT KING MD Apr 12, 2025 11:52
--- NOTE | 2025-04-12 13:52 | DVHSR ---
APPROVED REPORT Exam: Nuclear Stress Test BMI: 0 Stress Test Details HR Max Heart Rate (APMHR): 132.053953 bpm Target HR (85% APMHR): 112.744493 bpm BP ECG Stress ECG Conclusion There is mildly decreased radiotracer uptake in the inferior wall region without associated wall tom on abnormality which likely represents attenuation artifact. There is no definite evidence of vasodilator induced myocardial ischemia. Left ventricular systolic function is normal. NM EXAM: Myocardial Perfusion REST/STRESS Imaging Protocol: Rest Tc-99m/Stress Tc-99m 1 day Resting Data Rest SPECT myocardial perfusion imaging was performed in supine position 45 minutes following the int ravenous injection of 11.0 mCi of Tc-99m Sestamibi. Time of rest injection: 07:45 Date: 04/12/2025 Time of rest imagin:30 Date: 04/12/2025 Administration Route: IV Administration Site: Right Arm Pharmacologic Stress Pharmacologic stress test was performed by injecting Regadenoson 0.4 mg IV push followed by the intra venous injection of 30.0 mCi of Tc-99m Sestamibi. Time of stress injection: 09:45 Date: 04/12/2025 Time of stress imagin:30 Date: 04/12/2025 Administration Route: IV Administration Site: Right Arm Gated Stress SPECT was performed 45 minutes after stress injection. The images were gated to evaluate regional wall motion and calculate left ventricular ejection fracti on. Stress only was performed in the Supine position. Wall Motion Normal left ventricular size and function with no regional wall motion abnormalities. Nuclear Conclusion ECG Findings: negative for ischemia Clinical Findings: negative for ischemia Nuclear Findings: negative for ischemia Left Ventricular Function: normal Risk Study: low There is mildly decreased radiotracer uptake in the inferior wall region without associated wall tom on abnormality which likely represents attenuation artifact. There is no definite evidence of vasodilator induced myocardial ischemia. Left ventricular systolic function is normal.
[2025-04-12] MEDS: LORazepam 0.5 MG TAB PO ONE (14:06)
[2025-04-13 01:00] VITALS: BP 109/60; PULSE 69; RESP 20; TEMP 98.2; O2SAT 98
[2025-04-13] MEDS: ACETAMINOPHEN 325 MG TAB PO PRN (02:57)
[2025-04-13 05:00] VITALS: BP 123/72; PULSE 71; RESP 18; TEMP 97.4; O2SAT 98
[2025-04-13 08:00] VITALS: PULSE 70; PULSE 72; RESP 18; O2SAT 98
[2025-04-13 08:00] LABS: Chloride 106 mmol/L (98-107); Sodium 138 mmol/L (136-145)
[2025-04-13 08:01] LABS: Anion Gap 12 (5-15); Calcium 9.7 mg/dL (8.7-10.4); Carbon Dioxide 20 mmol/L (20-31)
[2025-04-13 08:06] LABS: BUN/Creatinine Ratio 15.9 (10.0-20.0); Blood Urea Nitrogen 17 mg/dL (9-23); Glucose 97 mg/dL (74-106); Magnesium 2.3 mg/dL (1.6-2.6)
[2025-04-13 09:30] VITALS: BP 101/57; PULSE 71; RESP 14; TEMP 97.3; O2SAT 98
--- NOTE | 2025-04-13 10:17 | DVHDS2 ---
Discharge Summary Date of Admission Apr 10, 2025 at 19:48 Date of Discharge: Apr 13, 2025 Admitting Diagnosis Chest Pain Labs/Diagnostic Data: Laboratory Results Test 04/13/25 06:06 04/12/25 16:44 04/11/25 06:07 04/10/25 20:46 Sodium Level 138 mmol/L (136-145) Potassium Level 4.0 mmol/L (3.5-5.1) Chloride Level 106 mmol/L (98-107) Carbon Dioxide Level 20 mmol/L (20-31) Anion Gap 12 (5-15) Blood Urea Nitrogen 17 mg/dL (9-23) Creatinine 1.07 mg/dL (0.550-1.02) Glomerular Filtration Rate Calc 50 mL/min (>90) BUN/Creatinine Ratio 15.9 (10.0-20.0) Serum Glucose 97 mg/dL (74-106) Calcium Level 9.7 mg/dL (8.7-10.4) Magnesium Level 2.3 mg/dL (1.6-2.6) POC Glucose 234 mg/dl (70-106) Hemoglobin A1c 6.4 % A1C (<5.7) Serum Osmolality 270 mOsm/kg (278-298) Troponin I High Sensitivity 41 ng/L (</=34) Urine Color Colorless (Yellow) Urine Clarity Clear (Clear) Urine pH 5.5 (5.0-9.0) Urine Specific [place] 1.003 (1.001-1.035) Urine Protein Negative (Negative) Urine Ketones Negative (Negative) Urine Blood Trace /uL (Negative) Urine Nitrite Negative (Negative) Urine Bilirubin Negative (Negative) Urine Urobilinogen Normal mg/dL (Negative) Urine Leukocyte Esterase Negative /uL (Negative) Urine RBC None seen /hpf (0 - 4) Urine Microscopic WBC < 1 /HPF (0-5) Urine Squamous Epithelial Cells Few /hpf (<5) Urine Bacteria None seen /hpf (None Seen) Urine Glucose Normal mg/dL (Normal) Test 04/10/25 19:06 04/10/25 17:05 04/10/25 16:15 Triglycerides Level 78 mg/dL (< 150) Cholesterol Level 137 mg/dL (< 200) LDL Cholesterol 50 mg/dL (< 100) HDL Cholesterol 69 mg/dL (40-59) Thyroid Stimulating Hormone (TSH) 2.36 uIU/mL (0.55-4.78) White Blood Count 10.0 10^3/uL (4.4-10.8) Red Blood Count 3.32 10^6/uL (4.0-5.20) Hemoglobin 11.1 g/dL (12.2-16.2) Hematocrit 31.8 % (36.0-46.0) Mean Corpuscular Volume 95.7 fL (80.0-100.0) Mean Corpuscular Hemoglobin 33.3 pg (28.0-32.0) Mean Corpuscular Hemoglobin Concent 34.8 g/dL (32.0-36.0) Red Cell Distribution Width 13.8 % (11.8-14.3) Platelet Count 386 10^3/uL (140-450) Mean Platelet Volume 6.9 fL (6.9-10.8) Neutrophils (%) (Auto) 82.5 % (37.0-80.0) Lymphocytes (%) (Auto) 11.3 % (10.0-50.0) Monocytes (%) (Auto) 5.8 % (0.0-12.0) Eosinophils (%) (Auto) 0.0 % (0.0-7.0) Basophils (%) (Auto) 0.4 % (0.0-2.0) Neutrophils # (Auto) 8.2 10 ^3/uL (1.6-8.6) Lymphocytes # (Auto) 1.1 10 ^3/uL (0.4-5.4) Monocytes # (Auto) 0.6 10 ^3/uL (0-1.3) Eosinophils # (Auto) 0 10 ^3/uL (0-0.8) Basophils # (Auto) 0 10 ^3/uL (0-0.2) Nucleated Red Blood Cells 0.0 % Other Laboratory Tests 04/13/25 06:06 04/10/25 16:15 Brief Hx & Hospital Course: Patient is a 89F year-old F who was admitted for chest pain. Nm stress test was done, which was negative for ischemia. Patient will be discharged home. Operations or Procedures Exam: Nuclear Stress Test BMI: 0 Stress Test Details HR Max Heart Rate (APMHR): 132.650888 bpm Target HR (85% APMHR): 112.023329 bpm BP ECG Stress ECG Conclusion There is mildly decreased radiotracer uptake in the inferior wall region without associated wall motion abnormality which likely represents attenuation artifact. There is no definite evidence of vasodilator induced myocardial ischemia. Left ventricular systolic function is normal. NM EXAM: Myocardial Perfusion REST/STRESS Imaging Protocol: Rest Tc-99m/Stress Tc-99m 1 day Resting Data Rest SPECT myocardial perfusion imaging was performed in supine position 45 minutes following the intravenous injection of 11.0 mCi of Tc-99m Sestamibi. Time of rest injection: 07:45 Date: 04/12/2025 Time of rest imagin:30 Date: 04/12/2025 Administration Route: IV Administration Site: Right Arm Pharmacologic Stress Pharmacologic stress test was performed by injecting Regadenoson 0.4 mg IV push followed by the intravenous injection of 30.0 mCi of Tc-99m Sestamibi. Time of stress injection: 09:45 Date: 04/12/2025 Time of stress imagin:30 Date: 04/12/2025 Administration Route: IV Administration Site: Right Arm Gated Stress SPECT was performed 45 minutes after stress injection. The images were gated to evaluate regional wall motion and calculate left ventricular ejection fraction. Stress only was performed in the Supine position. Wall Motion Normal left ventricular size and function with no regional wall motion abnormalities. Nuclear Conclusion ECG Findings: negative for ischemia Clinical Findings: negative for ischemia Nuclear Findings: negative for ischemia Left Ventricular Function: normal Risk Study: low There is mildly decreased radiotracer uptake in the inferior wall region without associated wall motion abnormality which likely represents attenuation artifact. There is no definite evidence of vasodilator induced myocardial ischemia. Left ventricular systolic function is normal. Condition at Discharge: Poor Final Diagnosis/Problems List Chest pain, ruled out ACS S/p pacemaker, pacer dependent Palpitations Type 2 diabetes, Hb A1c 6.4 Discharge Disposition: Home Discharge Instruct/Medications Diet: Consistent carbohydrate Activity: Light activity Follow Up/Referral: PCP Discharge Statement: "Patient was advised to return to the ER or call 911 if any headaches, dizziness, shortness of breath, chest pain, abdominal pain, bleeding, fevers, or worsening of medical condition. Patient was counseled about treatment plan, medications, possible side effects, patientverbalized understanding. All questions were answered to the best of my ability. This discharge took greater then 30 minutes in planning, reviewing documentation, counseling the patient, and discussing with other team members." ASSESSMENT ASSESSMENT Assessment Date of Service: Apr 13, 2025 Billing Provider: GRANT KING MD Common Visit Codes: [id number] DISCH DAY >30min GRANT KING MD Apr 13, 2025 10:17
[2025-04-13 12:11] VITALS: BP 128/68; PULSE 68; RESP 20; TEMP 98.7; O2SAT 97
--- NOTE | 2025-04-13 13:41 | DVHPN2 ---
Consult Progress Note Subjective Patient reports: No new complaints Objective vital signs Vital Sign Date Time Temp Pulse Resp B/P (MAP) Pulse Ox O2 Delivery O2 Flow Rate FiO2 04/13/25 12:11 98.7 68 20 97 04/13/25 09:30 101/57 (72) 04/13/25 08:00 Room Air* 0 21 Total Intake and Output 04/12/25 04/12/25 04/13/25 15:00 23:00 07:00 Intake Total 300 ml 800 ml Balance 300 ml 800 ml medications Current Medications Medications Dose Ordered Sig/Britany Route Start Time Stop Time Status Last Admin Dose Admin Aspirin 162 mg DAILY PO 04/11/25 10:00 04/12/25 10:30 162 MG Atorvastatin Calcium 10 mg HS PO 04/10/25 22:00 04/12/25 21:34 10 MG Diagnostic Test (Pha) 1 strip ACHS 04/10/25 22:00 04/13/25 12:00 1 STRIP Insulin Human Regular ACHS SC 04/10/25 22:00 04/12/25 17:09 4 UNITS Dextrose 50 ml UD PRN IV 04/10/25 20:00 Ondansetron HCl 4 mg Q4HP PRN IV 04/10/25 20:00 Enoxaparin Sodium 40 mg DAILY SC 04/11/25 10:00 04/13/25 09:41 40 MG Acetaminophen 650 mg Q6HP PRN PO 04/10/25 20:00 04/13/25 02:57 650 MG Nitroglycerin 0.4 mg Q5MINP PRN SL 04/10/25 20:00 Morphine Sulfate 2 mg Q30M PRN IV 04/10/25 20:00 Examination: CVS:Normal (Telemetry consistent with AV paced rhythm at 60 beats per minute) laboratory and microbiology Laboratory Tests 04/13/25 06:06 04/10/25 16:15 Test 04/13/25 06:06 Range/Units Serum Glucose 97 74-106 mg/dL Problem List/Assessment/Plan Problem List/Assessment/Plan Assessment Chest pain, rule out ACS S/p pacemaker, pacer dependent Palpitations Type 2 diabetes, Hb A1c 6.4 Plan: - serial troponins 52, 49, 54, 41 - heart score 4 - pacemaker interrogation with [facility] completed, per personnel pacemaker functioning appropriately with adequate battery for the next 8 yrs - inpatient stress test Lexiscan negative for inducible ischemia - outpatient follow up with cardiology recommended for pacemaker management - rest of the management as per course of hospitalization Case Discussed with Dr Bauer . Patient underwent Ramila stress test which was negative for inducible ischemia, follow up echo if no significant abnormalities patient is stable for discharge. Continued outpatient follow up for ppm management. Critical care, time spent: 40 minutes This medical document was created using an electronic medical record system with voice recognition software and computerized dictation system. Although this document has been carefully reviewed, there might still be some phonetic and typographical errors. Occasional wrong-word or ``sound-alike substitutions may have occurred due to the inherent limitations of voice recognition software. These areas are purely typographical due to imperfections of the software programs and do not reflect any compromise in the patient's medical care. Please read the chart carefully and recognize, using context, where these substitutions have occurred. Thank you for allowing me to participate in the management of this patient. The treatment plan was discussed with and agreed upon by patient/family including requesting consultants and ordering of imaging/procedures. Plan discussed with: Patient, Daughter Date of Service: Apr 13, 2025 Billing Provider: FLAVIO SAUCEDO Common Visit Codes: [id number] INP/OBS CARE(HIGH) FLAVIO SAUCEDO Apr 13, 2025 13:41
--- NOTE | 2025-04-14 00:42 | DVHSR ---
APPROVED REPORT EXAM: Two-dimensional and M-mode echocardiogram with Doppler and color Doppler. Blood Pressure: 118/66 mmHg INDICATION Chest Pain RISK FACTORS Height: 4'11", Weight: 128 DIMENSIONS LVDd4.8 (3.8-5.7cm)LA (2D)4.6 (1.9-4.0cm)Aortic Root2.9 (2.0-3.7cm) LVDs3.6 (2.5-4.0cm)LA (MM) (1.9-4.0cm)Aortic Cusp Exc1.6 (1.5-2.0cm) EF (%) 48.0 (55-70%)Rt. Atrium3.2 (1.9-4.0cm)Asc. Aorta cm IVSd0.9 (0.7-1.1cm)RV (D)2.8 (1.8-2.4cm) PWd0.5 (0.7-1.1cm) Mitral Valve MitralMitral Stenosis E wave0.55m/sMV Mean GR.mmHg A wave0.95m/sMV Peak GR.mmHg E/A ratio0.62D MVAcm2 DECEL [id number] 1/2 [place] Aortic Valve Aortic ValveAortic Stenosis V10.79m/Toni Mean GR.5mmHg V21.45m/Toni Peak GR.8mmHg LVOT Diameter1.9 (1.8-2.4cm)Doppler AVA1.54cm2 AI P 1/2 Oupm262.59ms Pulmonic Valve V21.06m/s Other Information Quality : Technically LimitedRhythm : Technically limited study due to body habitus. 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
== END 2025-04-13 13:00 | disposition home or self-care (01) | DRG 203 ==
LOC: ER 14:42 → OVERFLOW 19:48 → TELE-EAST 23:25
PROVIDERS: ADMIT Internal Medicine; ATTEND Internal Medicine
DX: M94.0 Chondrocostal junction syndrome [Tietze] (principal); E11.9 Type 2 diabetes mellitus without complications; F41.9 Anxiety disorder, unspecified; I10 Essential (primary) hypertension; R00.2 Palpitations; E78.5 Hyperlipidemia, unspecified; Z95.0 Presence of cardiac pacemaker; Z90.710 Acquired absence of both cervix and uterus; Z83.3 Family history of diabetes mellitus; Z79.2 Long term (current) use of antibiotics; Z79.899 Other long term (current) drug therapy; Z79.84 Long term (current) use of oral hypoglycemic drugs
CPT/HCPCS: 36415; 71045; 78452; 80048; 80061; 81001; 82962; 83036; 83735; 83930; 84443; 84484; 85025; 87081; 93005; 93017; 93306; 96374; 96375; 99291; G0378; J1815; J2405